=== PATIENT | male | born 1970 | race Caucasian/White ===

== ENCOUNTER 2017-10-28 13:07 | Emergency (ER) | payer OTHER ==
[~2017-10-28] VITALS: Ht 177.8 cm; Wt 90.7 kg
--- NOTE | ~2017-10-28 | EKG ---
[address] [address] [place] [address] ELECTROCARDIOGRAM REPORT Name: IRENE DESIR Room #: DEP ORLIN Reese#: [id number] Admission: 10/28/17 Attend Phys: Discharge: 10/28/17 Date of : 70 Report #: [id number] THIS REPORT FOR: //name// [facility] ED Test Date: 2017-10-28 Test Time: 13:29:58 Pat Name: IRENE DESIR Department: Room: Gender: Livestock Farmer: [facility] : 1970 Requested By: Guy Brian Order Number: [id number] MD: Alexis Stone Measurements Intervals [place] Rate: 101 P: 62 AR: 169 QRS: 75 QRSD: 105 T: 40 QT: 337 QTc: 437 Interpretive Statements Sinus tachycardia RSR' in V1 or V2, right VCD No previous ECG available for comparison Electronically Signed On 10-29-2017 8:05:37 CDT by Alexis Stone [email or web address] <ELECTRONICALLY SIGNED> By: Alexis Stone MD, [facility] 10/29/17 0805 [id number] [id number] Alexis Stone MD, FACC /EPI
[2017-10-28] MEDS ORDERED: LAMICTAL100 MG PO (13:33)
[2017-10-28] MEDS ORDERED: ZANTAC 150MG T150 MG PO (13:33)
[2017-10-28 13:34] LABS: ABSOLUTE NEUTROPHILS 7.9 thou/uL (1.4-8.2); BASOPHILS 1.1 % (0.0-2.0); EOSINOPHILS 4.4 % (0.0-3.0); HEMATOCRIT 44.1 % (42.0-52.0); HEMOGLOBIN 15.2 gm/dL (14.0-18.0); MCH 31.8 pg (26.0-34.0); MCHC 34.4 g/dL (28.0-37.0); MCV 92.2 fL (80.0-100.0); MONOCYTES 7.1 % (1.0-8.0); PLATELET COUNT 279 thou/uL (150-400); POLYS 65.4 % (36.0-66.0); RBC 4.79 mil/uL (4.50-6.00); RDW 13.9 % (10.5-14.5); WBC 12.1 thou/uL (4.0-11.0)
[2017-10-28] MEDS ORDERED: LIPITOR10 MG PO (13:34)
[2017-10-28] MEDS ORDERED: INVEGA9 MG PO (13:34)
[2017-10-28] MEDS ORDERED: NEXIUM40 MG PO (13:36)
[2017-10-28] MEDS ORDERED: BENZTROPINE MES1 MG PO (13:36)
[2017-10-28] MEDS ORDERED: HYDROCODON-ACE1 EAC8 PO (13:37)
[2017-10-28 13:43] LABS: ANION GAP 6 mmol/L (7-16); BUN 11 mg/dL (7-18); CALCIUM 8.7 mg/dL (8.5-10.1); CHLORIDE 101 mmol/L (98-107); CO2 28 mmol/L (21-32); CREATININE 1.2 mg/dL (0.7-1.3); GLUCOSE 114 mg/dL (74-106); POTASSIUM 3.7 mmol/L (3.5-5.1); SODIUM 135 mmol/L (136-145)
[2017-10-28 13:52] LABS: ALBUMIN 3.9 g/dL (3.4-5.0); LIPASE 96 U/L (73-393); SGOT 19 U/L (15-37); SGPT 35 U/L (30-65); TOTAL BILIRUBIN 0.3 mg/dL (<0.1-1.0); TOTAL PROTEIN 7.5 g/dL (6.4-8.2); TROPONIN-I <0.06 ng/mL (<0.06)
[2017-10-28 14:41] LABS: URINE BILIRUBIN NEGATIVE (Negative); URINE BLOOD NEGATIVE (Negative); URINE CLARITY CLEAR; URINE COLOR YELLOW; URINE GLUCOSE-RANDOM* NEGATIVE (Negative); URINE KETONES NEGATIVE (Negative); URINE LEUKOCYTES-REFLEX NEGATIVE (Negative); URINE NITRITE-REFLEX NEGATIVE (Negative); URINE PROTEIN (DIPSTICK) NEGATIVE (Negative); URINE SPECIFIC GRAVITY <= 1.005 (1.005-1.035); URINE UROBILINOGEN 0.2 E.U./dl (0.2-1.0)
[2017-10-28] MEDS ORDERED: PROVENTIL HFA6.7 G1 INH (14:47)
[2017-10-28] MEDS ORDERED: PREDNISONE 20 M20 MG PO (14:47)
[2017-10-28 15:16] VITALS: BP 161/93
== END 2017-10-28 15:17 | disposition home or self-care (01) ==
LOC: ER 13:07
PROVIDERS: Physician Assistant
DX: J44.1 Chronic obstructive pulmonary disease with (acute) exacerbation (principal); R25.1 Tremor, unspecified; F17.210 Nicotine dependence, cigarettes, uncomplicated; M25.562 Pain in left knee; M25.561 Pain in right knee; M25.552 Pain in left hip; M25.551 Pain in right hip; M79.604 Pain in right leg; M79.605 Pain in left leg; M54.5 Low back pain; G89.29 Other chronic pain; F32.9 Major depressive disorder, single episode, unspecified; F41.9 Anxiety disorder, unspecified; E78.00 Pure hypercholesterolemia, unspecified

== ENCOUNTER 2017-12-27 11:49 | Emergency (ER) | payer OTHER ==
[~2017-12-27] VITALS: Ht 177.8 cm; Wt 93.0 kg
[~2017-12-27 11:49] MED LIST: BENZTROPINE MES1 MG PO; HYDROCODON-ACE1 EAC8 PO; INVEGA9 MG PO; LAMICTAL100 MG PO; LIPITOR10 MG PO; NEXIUM40 MG PO; PREDNISONE 20 M20 MG PO; PROVENTIL HFA6.7 G1 INH; ZANTAC 150MG T150 MG PO
[2017-12-27] MEDS ORDERED: PROPRANOLOL 1010 MG PO (13:08)
[2017-12-27] MEDS ORDERED: INVEGA9 MG PO (13:11)
[2017-12-27 13:20] LABS: BASOPHILS 0.7 % (0.0-2.0); EOSINOPHILS 7.5 % (0.0-3.0); MCH 32.4 pg (26.0-34.0); MCHC 34.5 g/dL (28.0-37.0)
[2017-12-27 13:22] LABS: ABSOLUTE NEUTROPHILS 10.3 thou/uL (1.4-8.2); HEMATOCRIT 45.4 % (42.0-52.0); HEMOGLOBIN 15.7 gm/dL (14.0-18.0); LYMPHOCYTES 19.1 % (24.0-44.0); MONOCYTES 7.4 % (1.0-8.0); POLYS 65.3 % (36.0-66.0); RBC 4.83 mil/uL (4.50-6.00); RDW 13.2 % (10.5-14.5); WBC 17.9 thou/uL (4.0-11.0)
[2017-12-27 14:12] LABS: PLATELET COUNT 380 thou/uL (150-400)
[2017-12-27 14:22] LABS: URINE BILIRUBIN NEGATIVE (Negative); URINE BLOOD NEGATIVE (Negative); URINE CLARITY CLEAR; URINE COLOR YELLOW; URINE GLUCOSE-RANDOM* NEGATIVE (Negative); URINE KETONES NEGATIVE (Negative); URINE LEUKOCYTES-REFLEX NEGATIVE (Negative); URINE NITRITE-REFLEX NEGATIVE (Negative); URINE PROTEIN (DIPSTICK) NEGATIVE (Negative); URINE UROBILINOGEN 0.2 E.U./dl (0.2-1.0)
[2017-12-27 14:22] LABS: CALCIUM 9.7 mg/dL (8.5-10.1); CREATININE 1.2 mg/dL (0.7-1.3); POTASSIUM 4.4 mmol/L (3.5-5.1)
[2017-12-27 14:29] LABS: AMP/METHAMP Negative (Negative); BARBITURATES Negative (Negative); BENZODIAZEPINES Negative (Negative); COCAINE Negative (Negative); METHADONE Negative (Negative); OPIATES POSITIVE (Negative); PCP Negative (Negative)
[2017-12-27 15:53] VITALS: BP 142/84
== END 2017-12-27 15:48 | disposition home or self-care (01) ==
LOC: ER 11:49
PROVIDERS: Emergency Medicine
DX: R26.9 Unspecified abnormalities of gait and mobility (principal); R42 Dizziness and giddiness; R53.1 Weakness; J44.9 Chronic obstructive pulmonary disease, unspecified; G20 Parkinson's disease; E03.9 Hypothyroidism, unspecified; F17.210 Nicotine dependence, cigarettes, uncomplicated

== ENCOUNTER 2018-07-30 14:55 | Emergency (ER) | payer OTHER ==
[~2018-07-30] VITALS: Ht 177.8 cm; Wt 81.7 kg
[~2018-07-30 14:55] MED LIST changes: +PROPRANOLOL 1010 MG PO
[2018-07-30 15:25] LABS: ABSOLUTE NEUTROPHILS 9.4 thou/uL (1.4-8.2); BASOPHILS 0.7 % (0.0-2.0); EOSINOPHILS 2.4 % (0.0-3.0); HEMATOCRIT 40.7 % (42.0-52.0); LYMPHOCYTES 15.8 % (24.0-44.0); MCH 31.9 pg (26.0-34.0); MCHC 34.5 g/dL (28.0-37.0); MCV 92.4 fL (80.0-100.0); MONOCYTES 5.4 % (1.0-8.0); PLATELET COUNT 296 thou/uL (150-400); POLYS 75.7 % (36.0-66.0); RDW 13.6 % (10.5-14.5); WBC 12.4 thou/uL (4.0-11.0)
[2018-07-30 15:36] LABS: ANION GAP 8 mmol/L (7-16); BUN 10 mg/dL (7-18); CALCIUM 8.6 mg/dL (8.5-10.1); CHLORIDE 95 mmol/L (98-107); CO2 27 mmol/L (21-32); CREATININE 1.6 mg/dL (0.7-1.3); GLUCOSE 121 mg/dL (74-106); POTASSIUM 3.9 mmol/L (3.5-5.1); SODIUM 130 mmol/L (136-145)
[2018-07-30 15:44] LABS: TROPONIN-I <0.06 ng/mL (<0.06)
[2018-07-30 17:23] LABS: URINE BILIRUBIN NEGATIVE (Negative); URINE BLOOD NEGATIVE (Negative); URINE CLARITY CLEAR; URINE COLOR YELLOW; URINE GLUCOSE-RANDOM* NEGATIVE (Negative); URINE KETONES NEGATIVE (Negative); URINE LEUKOCYTES-REFLEX NEGATIVE (Negative); URINE NITRITE-REFLEX NEGATIVE (Negative); URINE PROTEIN (DIPSTICK) NEGATIVE (Negative); URINE SPECIFIC GRAVITY <= 1.005 (1.005-1.035); URINE UROBILINOGEN 0.2 E.U./dl (0.2-1.0)
[2018-07-30 17:29] LABS: AMP/METHAMP Negative (Negative); BARBITURATES Negative (Negative); BENZODIAZEPINES Negative (Negative); COCAINE Negative (Negative); METHADONE Negative (Negative); OPIATES POSITIVE (Negative); PCP Negative (Negative)
[2018-07-30 18:46] VITALS: BP 118/87
--- NOTE | 2018-07-31 16:51 | EKG ---
[address] [address] ELECTROCARDIOGRAM REPORT Name: IRENE DESIR Room #: DEP ORLIN Reese#: [id number] ������������������ Admission: 07/30/18 ������������������ Attend Phys: Discharge: 07/30/18 ������������������ Date of : 70 Report #: [id number] ����������������������������������������������������������������� [id number] THIS REPORT FOR: //name// [facility] ED Test Date: 2018-07-30 Test Time: 15:07:35 Pat Name: IRENE DESIR Department: Room: Gender: Director Broadcast: leticia : 1970 Requested By: Crystal Borges Order Number: [id number] MD: Mike Hernandez Measurements Intervals [place] Rate: 85 P: 67 OR: 152 QRS: 93 QRSD: 104 T: 63 QT: 369 QTc: 439 Interpretive Statements Sinus rhythm Compared to ECG 10/28/2017 13:29:58 Sinus tachycardia no longer present Electronically Signed On 07-31-2018 16:50:45 CDT by Mike Hernandez [email or web address] ��������������������������������������������� <ELECTRONICALLY SIGNED> ���������������������������������������� By: Mike Hernandez MD ��������������������������������������������� 07/31/18 1650 1507 150 Mike Hernandez MD /GORGE
== END 2018-07-30 18:47 | disposition home or self-care (01) ==
LOC: ER 14:55
PROVIDERS: Student in an Organized Health Care Education/Training Program
DX: I95.9 Hypotension, unspecified (principal); I77.1 Stricture of artery; J32.9 Chronic sinusitis, unspecified; E86.0 Dehydration; F17.210 Nicotine dependence, cigarettes, uncomplicated; J44.9 Chronic obstructive pulmonary disease, unspecified; G20 Parkinson's disease; E03.9 Hypothyroidism, unspecified; F32.9 Major depressive disorder, single episode, unspecified; F41.9 Anxiety disorder, unspecified